=== PATIENT | male | born 1945 | race Caucasian/White ===

== ENCOUNTER 2018-03-16 17:46 | Emergency (ER) | payer MEDICARE, OTHER ==
[2018-03-16 18:36] VITALS: BP 145/73
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
== END 2018-03-16 18:36 | disposition home or self-care (01) ==
LOC: ED 17:46
DX: S29.012A Strain of muscle and tendon of back wall of thorax, initial encounter (principal); V43.52XA Car driver injured in collision with other type car in traffic accident, initial encounter; Y92.410 Unspecified street and highway as the place of occurrence of the external cause; Z87.891 Personal history of nicotine dependence; Z88.3 Allergy status to other anti-infective agents
CPT/HCPCS: 99282

== ENCOUNTER 2019-10-21 09:55 | Inpatient (IN) | payer MEDICARE, BC, OTHER ==
--- NOTE | 2019-10-08 16:29 | HP ---
HISTORY AND PHYSICAL: DATE OF ADMISSION/SURGERY: 10/21/19 DATE OF OFFICE VISIT: 10/03/19 SURGEON: Cecily Luna MD * (DICTATED BY LULU CANSECO) PROCEDURE: Right total hip arthroplasty. CHIEF COMPLAINT: Right hip pain. HISTORY OF PRESENT ILLNESS: Mr. Lucio is a 74-year-old gentleman with severe end- stage osteoarthritis of the right hip. He has failed conservative treatment and elected to proceed with a right total hip arthroplasty. PAST MEDICAL HISTORY: High cholesterol and GERD. PAST SURGICAL HISTORY: Vasectomy, bilateral rotator cuff repair, varicose vein surgery, and tonsillectomy. CURRENT MEDICATIONS: 1. Rosuvastatin calcium 5 mg a day. 2. Montelukast sodium 10 mg a day. 3. Ranitidine 150 mg a day. 4. Sildenafil 50 mg a day. 5. Vitamin D, magnesium, Aleve, and Tylenol as needed. ALLERGIES: ERYTHROMYCIN. FAMILY HISTORY: Coronary artery disease. SOCIAL HISTORY: He is a 74-year-old gentleman, lives with his . He does not smoke or use drugs. Use occasional alcohol. REVIEW OF SYSTEMS: A complete 14-point review of systems was reviewed with the patient. Is positive for GERD. He denies history of DVT, PE, hepatitis, HIV, or anesthesia problems. PHYSICAL EXAMINATION GENERAL: He is well developed, well nourished, in no acute distress. VITAL SIGNS: He stands 66 inches tall, weighs 169 pounds. Blood pressure is 118/74, heart rate is 96. HEENT: Normocephalic, atraumatic. NECK: Supple. No palpable lymph nodes. PULMONARY: The lungs are clear to auscultation bilaterally. CARDIO: Regular rate and rhythm. Strong S1, S2. ABDOMEN: Soft, nontender, nondistended. NEUROLOGICAL: He is alert and oriented x3. MUSCULOSKELETAL: Right lower extremity: The skin is intact. There are no open wounds or abrasions. He walks with an antalgic-type gait favoring his right hip. He has 90 degrees of hip flexion, 0 degrees of internal rotation, 20 degrees of external rotation, all reproducing severe groin pain. He is able to dorsiflex and plantarflex. He has 2+ dorsalis pedis pulse and intact sensation. ASSESSMENT AND PLAN: Mr. Lucio is a 74-year-old gentleman with severe end- stage osteoarthritis of the right hip. He has failed conservative treatment and elected to proceed with a right total hip arthroplasty. The surgery is scheduled for 10/21/[address] Luna discussed the risks and benefits of the surgery at today's visit and all of his questions were answered. He will follow up with Dr. Luna 2 weeks after the surgery. LULU CANSECO [id number]/[facility] #: [id number] MTDHelen
[~2019-10-21 09:55] MED LIST: Acetaminophen TAB* 325 MG PO ONE; Buffered Lidocaine 1% SYRIN* 1 ML/SYRINGE INTRADERM ONE; GENTAMICIN ADULT IVPB SCH; Gabapentin CAP(*) 300 MG PO ONE; Lactated Ringers 1000 ML Bag* 1,000 ML IV SCH; NS 0.9% IVPB SCH; Tranexamic Acid 1,000 MG in NS 0.9% 50 ML* (outpatient use) IV SCH; celeCOXIB CAP* 200 MG PO ONE
[2019-10-21] MEDS ORDERED: Gabapentin CAP(*) 300 MG ONE (11:25)
[2019-10-21] MEDS ORDERED: Acetaminophen TAB* 325 MG ONE (11:25)
[2019-10-21] MEDS ORDERED: celeCOXIB CAP* 200 MG ONE (11:26)
[2019-10-21] MEDS ORDERED: Buffered Lidocaine 1% SYRIN* 1 ML/SYRINGE INTRADERM ONE (11:26)
[2019-10-21] MEDS ORDERED: ceFAZolin 2 GM PREMIX in ORs 2 GM/50 ML BAG ONE (11:26)
[2019-10-21] MEDS ORDERED: fentaNYL* 50 MCG/ML 2 ML VIAL (100 MCG VIAL) ONE (13:27)
[2019-10-21] MEDS ORDERED: Propofol* 500 MG/50 ML BTL ONE (13:29)
[2019-10-21] MEDS ORDERED: Midazolam* 1 MG/ML 2 ML VIAL (2 MG) ONE (13:29)
[2019-10-21] MEDS ORDERED: Lidocaine 2% PF * 5 ML VIAL ONE (13:29)
[2019-10-21] MEDS ORDERED: Phenylephrine 40 MCG/ML SYRINGE ONE (14:14)
[2019-10-21] MEDS ORDERED: EPHEDrine (Pressors)* 50 MG/ML VIAL ONE ×2 (14:43→15:45)
[2019-10-21] MEDS ORDERED: Gentamicin ADULT (*) 40 MG/ML VIAL (2 ML VIAL = 80 MG) ONE (14:50)
[2019-10-21] MEDS ORDERED: Gentamicin ADULT (*) 140 MG in NS 0.9% 100 ML* 100 ML IVPB SCH (14:57)
[2019-10-21] MEDS ORDERED: Naloxone* 0.4 MG/ML 1 ML VIAL IV PRN (15:31)
[2019-10-21] MEDS ORDERED: PROCHLORPERAZINE INJ 5 MG/ML 2 ML VIAL IV PRN (15:31)
[2019-10-21] MEDS ORDERED: diPHENhydraMINE IV* 50 MG/ML 1 ml VIAL (BENADRYL) IV PRN ×2 (15:31→15:53)
[2019-10-21] MEDS ORDERED: HYDROmorphone INJ1* 1 MG/ML SYRINGE IV PRN (15:31)
[2019-10-21] MEDS ORDERED: oxyCODONE TAB* 5 MG TAB PO PRN ×2 (15:31→15:53)
[2019-10-21] MEDS ORDERED: Ondansetron INJ* 2 MG/ML VIAL IV PRN (15:31)
--- OUTSIDE RECORDS SUMMARY | 2019-10-21 15:49 | XMS REPORT | Continuity of Care Document ---
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 Onset: 01/22/2009 Pure hypercholesterolemia Boni Rockwell M.D. Onset: 01/22/2009 Impotence of organic origin Oli Cooper D.O. Onset: 09/04/2013 Gilbert's syndrome Boni Rockwell M.D. Onset: 09/03/2014 Benign prostatic hypertrophy without Boni Rockwell M.D. Onset: 2014 outflow obstruction Psychogenic impotence Boni Rockwell M.D. Onset: 09/07/2016 Social History Type Date Description Comments Sex Unknown Tobacco Use Start: Unknown End: Unknown Does Not Smoke Cigarettes Tobacco Use Reviewed: 09/03/14 Denies Cigarette Use Smoking Status Reviewed: 09/15/19 Denies Cigarette Use ETOH Use Currently consumes alcohol 1/day Recreational Drug Use Never Used Drugs Tobacco Use Start: Unknown Non Smoker Allergies, Adverse Reactions, Alerts Active Allergies Reaction Severity Comments Date Erythromycin 03/26/2004 Medications Active Medications SIG Qnty Indications Ordering Date Provider Magnesium 1 qd Unknown 09/14/2019 Ibuprofen PM 1 po at bedtime Unknown 03/04/2019 200-25mg Capsules Viagra take 1 tablet by 6tabs N52.9 Oli Cooper, 01/14/2019 50mg Tablets mouth daily as D.O. needed for erectile dysfunction Rosuvastatin Calcium take 1 tablet by 90tabs E78.0 Oli Cooper, 2018 mouth Every Night D.O. 5mg Tablets For Cholesterol Ranitidine HCL 1 tab by mouth 180caps K29.00 Kenneth Oli, 09/12/2018 150mg twice a day for D.O. Capsules heartburn Vitamin D3 1 by mouth every Unknown 09/11/2018 2000Unit day for vitamin d Capsules deficiency During The Winter Months Multivitamins 1 by mouth every Unknown 09/05/2015 day Metamucil 1 tsp w/8 oz of OTC Silcoff, 04/09/2015 Powder water twice daily, Ioana Genao follow with 8 oz of water Montelukast Sodium take one tablet by 90tabs J31.0 Oli Cooper, 2012 10mg mouth every D.O. Tablets evening for chronic rhinitis J30.9 History Medications Ibuprofen 1 cap by mouth 30tabs Oli Cooper, 07/18/2019 - 800mg Tablets three times a D.O. 07/28/2019 day Levofloxacin 1 by mouth 10tabs N45.1 Oli Cooper, 07/18/2019 - 500mg every day x 10 D.O. 07/28/2019 Tablets days Medications Administered in Office Medication SIG Qnty Indications Ordering Provider Date injection, kenalog, 10 mg Oli Cooper, D.O. 03/05/2019 Injection Immunizations CPT Code Status Date Vaccine Lot # [id number] Given 07/18/2019 Influenza Virus Vaccine, Quadrivalent, Split, [id number] Preservative Free 79894 Given 09/12/2018 Influenza Virus Vaccine, Quadrivalent, Split, [id number] Preservative Free 51791 Given 09/10/2017 Influenza Virus Vaccine, Quadrivalent, Split, [id number] Preservative Free 39136 Given 08/07/2016 Influenza Virus Vaccine, Quadrivalent, Split, [id number] Preservative Free 41351 Given 09/15/2015 Influenza Virus Vaccine, Quadrivalent, Split, [id number] Preservative Free 22091 Given 09/15/2015 Prevnar 13 [id number] 20883 Given 09/06/2015 Adacel or Boostrix, TDaP [id number] 82830 Given 10/02/2014 Influenza Virus Vaccine, Quadrivalent, Split, [id number] Preservative Free 40963 Given 09/01/2013 Flu, Split Virus 3Yrs [id number] 98423 Given 08/19/2012 Flu, Split Virus 3Yrs [id number] 78246 Given 07/15/2011 Flu, Split Virus 3Yrs 35926 Given 08/23/2010 Flu, Split Virus 3Yrs [id number] 09827 Given 08/23/2010 Pneumococcal Immunization [id number] 37468 Given 12/01/2009 Zostavax [id number] 66810 Given 08/14/2009 Flu, Split Virus 3Yrs [id number] 96044 Given 09/04/2008 Td Immunization [id number] 13153 Given 09/04/2008 Flu, Split Virus 3Yrs [id number] 03408 Given 09/19/2007 Flu, Split Virus 3Yrs [id number] 78920 Given 10/02/2006 Flu, Split Virus 3Yrs [id number] 44150 Given 10/20/2005 Flu, Split Virus 3Yrs [id number] 48127 Given 07/14/2004 Td Immunization 54604 Given 09/18/2003 Flu, Split Virus 3Yrs Vital Signs Date Vital Result Comment 09/15/2019 2:09pm BP Systolic 112 mmHg BP Diastolic 74 mmHg 07/18/2019 2:52pm BP Systolic 130 mmHg BP Diastolic 78 mmHg Weight 162.50 lb Results Description No Information Available Procedures Description No Information Available Medical Devices Description No Information Available Encounters Type Date Location Provider Dx Diagnosis Office Visit 09/15/2019 Main Office Oli Cooper, M25.551 Pain in right hip 1:30p D.O. Z01.818 Encounter for other preprocedural examination N40.0 Benign prostatic hyperplasia without lower urinry tract symp Office Visit 07/18/2019 2:45p Main Office Oli Cooper D.O. N45.1 Epididymitis Z23 Encounter for immunization Z41.8 Encntr for oth proc for purpose oth than remedy health state Assessments Date Code Description Provider 09/15/2019 M25.551 Pain in right hip Oli Cooper D.O. 09/15/2019 Z01.818 Encounter for other preprocedural examination Oli Cooper D.O. 09/15/2019 N40.0 Benign prostatic hyperplasia without lower Oli Cooper D.O. urinary tract sym 07/18/2019 N45.1 Epididymitis Oli Cooper D.O. 07/18/2019 Z23 Encounter for immunization Oli Cooper D.O. 07/18/2019 Z41.8 Encounter for other procedures for purposes Oli Cooper D.O. other than remedying health state Plan of Treatment Future Appointment(s):09/21/2020 3:30 pm - Oli Cooper D.O. at Main [facility]/15/2019 - Oli Cooper D.O.M25.551 Pain in right hipFollow up:DMHM when xabexmjclaT00.818 Encounter for other preprocedural examinationFollow up: Good exercise tolerance. no comorbidities. Alfonso is a low risk for this surgical procedure. EKG in January was normal. Recommended to have CBC and CMP prior to surgery may do with regular presurgicalprocess. Order given just in case.N40.0 Benign prostatic hyperplasia without lower urinary tract sym Functional Status Description No Information Available Mental Status Description No Information Available Referrals Description No Information Available
--- OUTSIDE RECORDS SUMMARY | 2019-10-21 15:49 | XMS REPORT | Continuity of Care Document ---
:1945 External Reference #:[id number] Author Name Cecily Luna M.D. 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 Onset: 10/03/2019 Localized, primary osteoarthritis of the pelvic Cecily Luna M.D. Onset: region and thigh Social History Type Date Description Comments Sex Unknown ETOH Use Currently consumes alcohol Tobacco Use Start: Unknown Patient has never smoked Smoking Status Reviewed: 10/03/19 Patient has never smoked Exercise Type/Frequency Exercises regularly Allergies, Adverse Reactions, Alerts Active Allergies Reaction Severity Comments Date Erythromycin 03/26/2019 Medications Active Medications SIG Qnty Indications Ordering Provider Date Rosuvastatin Calcium Oli Cooper, 5mg Tablets DO Montelukast Sodium Oli Cooper, 10mg Tablets DO Ranitidine HCL Unknown 150mg Capsules Sildenafil Citrate Oli Cooper, 50mg Tablets DO Vitamin D Unknown 50mcg (2000 Ut) Capsules Magnesium Unknown 250mg Tablets Aleve Unknown 220mg Capsules Tylenol PM Unknown Medications Administered in Office Medication SIG Qnty Indications Ordering Provider Date Depomedrol 40MG Cecily Luna M.D. 10/03/2019 Injection Immunizations Description No Information Available Vital Signs Date Vital Result Comment 10/03/2019 1:47pm Height 66 inches 5'6" Weight 169.00 lb Heart Rate 96 /min BP Systolic 118 mmHg BP Diastolic 74 mmHg Respiratory Rate 16 /min Body Temperature 97.5 F Pain Level 4 BMI (Body Mass Index) 27.3 kg/m2 08/25/2019 2:29pm Height 66 inches 5'6" Weight 168.00 lb Heart Rate 71 /min BP Systolic 112 mmHg BP Diastolic 60 mmHg Body Temperature 97.0 F Pain Level 5 BMI (Body Mass Index) 27.1 kg/m2 Results Description No Information Available Procedures Date Code Description Status 10/03/2019 17229 Inject/Drain Joint/Bursa Major W/O US Completed Medical Devices Description No Information Available Encounters Type Date Location Provider Dx Diagnosis Office Visit 08/25/2019 [facility] Cecily Luna M25.551 Pain in right hip 2:15p at [facility] M16.11 Unilateral primary osteoarthritis, right hip Assessments Date Code Description Provider 10/03/2019 M25.551 Pain in right hip Cecily Luna M.D. 10/03/2019 M16.11 Unilateral primary osteoarthritis, right hip Cecily Luna M.D. 10/03/2019 M25.561 Pain in right knee Cecily Luna M.D. 10/03/2019 M25.461 Effusion, right knee Cecily Luna M.D. 10/03/2019 M17.11 Unilateral primary osteoarthritis, right knee Cecily Luna M.D. 08/25/2019 M25.551 Pain in right hip Cecily Luna M.D. 08/25/2019 M16.11 Unilateral primary osteoarthritis, right hip Cecily Luna M.D. Plan of Treatment Future Appointment(s):10/21/2019 4:30 pm - Cecily Luna M.D. at [facility] at Otbrtf4610/03/2019 - Cecily Luna M.D.M25.551 Pain in right hipFollow up:Follow up: 2 weeks after jiovhuxO44.11 Unilateral primary osteoarthritis, right hipM25.561 Pain in right kneeM25.461 Effusion, right kneeM17.11 Unilateral primary osteoarthritis, right knee Functional Status Description No Information Available Mental Status Description No Information Available Referrals Description No Information Available
--- OUTSIDE RECORDS SUMMARY | 2019-10-21 15:49 | XMS REPORT | Continuity of Care Document ---
:1945 External Reference #:[id number] Author Name Devang Bland M.D. 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 Medicine Problems Active Problems Provider Date Localized, [...] BMI (Body Mass Index) 27.1 kg/m2 Results Test Acquired Date Facility Test Result H/L Range Note Comp Metabolic 10/03/2019 [facility] Sodium 138 mmol/L Normal 135-[address] [place] [address] [phone] Potassium 3.9 mmol/L Normal 3.5-5.0 Chloride 102 mmol/L Normal 101-111 Co2 Carbon Dioxide 29 mmol/L Normal 22-32 Anion Gap 7 mmol/L Normal 2-11 Glucose 87 mg/dL Normal 70-100 Blood Urea Nitrogen 22 mg/dL Normal 6-24 Creatinine 0.98 mg/dL Normal 0.67-1.17 BUN/Creatinine Ratio 22.4 High 8-20 Calcium 9.7 mg/dL Normal 8.6-10.3 Total Protein 7.0 g/dL Normal 6.4-8.9 Albumin 4.4 g/dL Normal 3.2-5.2 Globulin 2.6 g/dL Normal 2-4 Albumin/Globulin Ratio 1.7 Normal 1-3 Total Bilirubin 1.40 mg/dL High 0.2-1.0 Alkaline Phosphatase 97 U/L Normal 34-104 Alt 31 U/L Normal 7-52 Ast 24 U/L Normal 13-39 Egfr Non- 74.8 >60 Egfr 90.5 >60 1 Inr/Protime 10/03/2019 [facility] Inr 1.01 Normal 0.82-1.[address] [place] [address] [phone] Laboratory test 10/03/2019 [facility] Partial 37.9 Normal 26.0 -38.[address] [address] Time PTT [phone] CBC Auto Diff 10/03/2019 [facility] White Blood 9.5 10^3/uL Normal 3.5-10.[address] [place] [address] [phone] Red Blood Count 4.96 10^6/uL Normal 4.18-5.48 Hemoglobin 15.1 g/dL Normal 14.0-18.0 Hematocrit 44 % Normal 42-52 Mean Corpuscular Volume 88 fL Normal 80-94 Mean Corpuscular Hemoglobin 31 pg Normal 27-31 Mean Corpuscular HGB Conc 35 g/dL Normal 31-36 Red Cell Distribution Width 13 % Normal 10-15 Platelet Count 246 10^3/uL Normal 150-450 Mean Platelet Volume 8.6 fL Normal 7.4-10.4 Abs Neutrophils 4.3 10^3/uL Normal 1.5-7.7 Abs Lymphocytes 4.2 10^3/uL Normal 1.0-4.8 Abs Monocytes 0.8 10^3/uL Normal 0-0.8 Abs Eosinophils 0.2 10^3/uL Normal 0-0.6 Abs Basophils 0.1 10^3/uL Normal 0-0.2 Abs Nucleated RBC 0.0 10^3/uL Granulocyte % 45.5 % Lymphocyte % 44.1 % Monocyte % 8.0 % Eosinophil % 1.7 % Basophil % 0.7 % Nucleated Red Blood Cells % 0.2 Urinalysis Profile 10/03/2019 [facility] Urine Color Yellow [address] [place] [address] [phone] Urine Appearance Clear Urine Specific [place] 1.012 Normal 1.010-1.030 Urine pH 6.0 Normal 5-9 Urine Urobilinogen Negative Negative Urine Ketones Negative Negative Urine Protein Negative Negative Urine Leukocytes Negative Negative Urine Blood Negative Negative Urine Nitrite Negative Negative Urine Bilirubin Negative Negative Urine Glucose Negative Negative Type & Screen 10/03/2019 [facility] Patient Blood Type A Positive [address] [place] [address] [phone] Antibody Screen NEGATIVE Urine Culture And 10/03/2019 [facility] Urine Culture SEE RESULT [address] [place] [address] [phone] 1 Because ethnic data is not always readily available, this report includes an eGFR for both -Americans and non- Americans. The National Kidney Disease Education Program (NKDEP) does not endorse the use of the MDRD equation for patients that are not between the ages of 18 and 70, are , have extremes of body size, muscle mass, or nutritional status, or are non- or non-. According to the National Kidney Foundation, irrespective of diagnosis, the stage of the disease is based on the level of kidney function: Stage Description GFR(mL/min/1.73 m(2)) 1 Kidney damage with normal or decreased GFR 90 2 Kidney damage with mild decrease in GFR 60-89 3 Moderate decrease in GFR 30-59 4 Severe decrease in GFR 15-29 5 Kidney failure <15 (or dialysis) 2 Standard intensity warfarin therapeutic range: 2.0-3.0 High intensity warfarin therapeutic range: 2.5-3.5 3 SEE RESULT BELOW Name: OSWALDO LUCIO : [address]: Cecily Luna MD Acct: [id number] Unit: [id number] AGE: 74 Location: [facility] Re10/03/19 SEX: M Status: REG REF SPEC: [id number] ZORAN: 10/03/[address]: Cecily Luna MD REQ: [id number] RECD: 10/03/19 STATUS: COMP _ SOURCE: URINE SPDESC: ORDERED: Urine Culture QUERIES: Urine Source: Clean Catch Procedure Result Reported Site Urine Culture Final 10/04/19- 1436 ML No Growth (<1,000 CFU/mL) * ML - Main Lab . END OF REPORT DEPARTMENT OF PATHOLOGY, [address] [place] [address] Brian Ibarra M.D. Director [facility] # [id number] Procedures Date Code Description Status 10/03/2019 31092 Inject/Drain Joint/Bursa Major W/O US Completed Medical Devices Description No Information Available Encounters Type Date Location Provider Dx Diagnosis Office Visit 08/25/2019 [facility] Cecily Luna, M25.551 [facility] Unilateral primary osteoarthritis, right hip Assessments [...] of Treatment Future Appointment(s):10/21/2019 4:30 pm - Jose Bui PA-C at [facility] at Aifyek8010/21/2019 4:30 pm - LULU Sauceda at [facility] at Zoikil9711/03/2019 10:45 am - Cecily Luna M.D. at [facility] at Teiobw6710/21/2019 4:30 pm - Cecily Luna M.D. at [facility] at Wryxnz8810/03/2019 - Cecily Luna M.D.M25.551 Pain in right hipFollow up:Follow up: 2 weeks after uxzrrhyW03.11 Unilateral primary osteoarthritis, right hipM25.561 Pain in right kneeM25.461 Effusion, right kneeM17.11 Unilateral primary osteoarthritis, right knee Functional Status Description No Information Available Mental Status Description No Information Available Referrals Description No Information Available
--- OUTSIDE RECORDS SUMMARY | 2019-10-21 15:49 | XMS REPORT | Continuity of Care Document ---
:1945 External Reference #:[id number] Author Name Oli Cooper D.O. Address [address] [place] [id number] Care Team Providers Name Role Phone David Arias MD - Ophthalmology Care Team Information Communications Attendant [phone] Jeffrey Sweet MD - Vascular Care Team Information Communications Attendant [phone] Surgery Problems Active Problems Provider Date Allergic [...] HCL 1 tab by mouth 180caps K29.00 Oli Cooper, 09/12/2018 150mg twice a day for D.O. [...] Sodium take one tablet by 90tabs J31.0 KennethOli, 2012 10mg mouth every D.O. Tablets evening for chronic rhinitis J30.9 History Medications Ibuprofen 1 cap by mouth 30tabs KennethOli, 07/18/2019 - 800mg Tablets three times a D.O. 07/28/2019 day Levofloxacin 1 by mouth 10tabs N45.1 KennethOli, 07/18/2019 - 500mg every day x 10 D.O. 07/28/2019 Tablets days Medications Administered in Office Medication SIG Qnty Indications Ordering Provider Date injection, kenalog, 10 mg LiGerhard rosaleson, D.O. 03/05/2019 Injection Immunizations CPT Code Status Date Vaccine Lot # [id number] Given 07/18/2019 Influenza Virus Vaccine, Quadrivalent, Split, [id number] Preservative Free 10553 Given 09/12/2018 Influenza Virus Vaccine, Quadrivalent, Split, [id number] Preservative Free 93994 Given 09/10/2017 Influenza Virus Vaccine, Quadrivalent, Split, [id number] Preservative Free 42913 Given 08/07/2016 Influenza Virus Vaccine, Quadrivalent, Split, [id number] Preservative Free 77329 Given 09/15/2015 Influenza Virus Vaccine, Quadrivalent, Split, [id number] Preservative Free 97632 Given 09/15/2015 Prevnar 13 [id number] 31039 Given 09/06/2015 Adacel or Boostrix, TDaP [id number] 63942 Given 10/02/2014 Influenza Virus Vaccine, Quadrivalent, Split, [id number] Preservative Free 85108 Given 09/01/2013 Flu, Split Virus 3Yrs [id number] 37941 Given 08/19/2012 Flu, Split Virus 3Yrs [id number] 75543 Given 07/15/2011 Flu, Split Virus 3Yrs 62135 Given 08/23/2010 Flu, Split Virus 3Yrs [id number] 01767 Given 08/23/2010 Pneumococcal Immunization [id number] 79016 Given 12/01/2009 Zostavax [id number] 07172 Given 08/14/2009 Flu, Split Virus 3Yrs [id number] 66802 Given 09/04/2008 Td Immunization [id number] 66310 Given 09/04/2008 Flu, Split Virus 3Yrs [id number] 71916 Given 09/19/2007 Flu, Split Virus 3Yrs [id number] 22727 Given 10/02/2006 Flu, Split Virus 3Yrs [id number] 92645 Given 10/20/2005 Flu, Split Virus 3Yrs [id number] 30913 Given 07/14/2004 Td Immunization 21466 Given 09/18/2003 Flu, Split Virus 3Yrs Vital Signs Date Vital Result Comment 09/15/2019 2:09pm BP Systolic 112 mmHg BP Diastolic 74 mmHg 07/18/2019 2:52pm BP Systolic 130 mmHg BP Diastolic 78 mmHg Weight 162.50 lb Results Test Acquired Date Facility Test Result H/L Range Note Lipid Profile 04/11/2019 [facility] Triglycerides 67 mg/dL 1 (Trig/Chol/HDL) [phone] Cholesterol 138 mg/dL 2 HDL Cholesterol 40.9 mg/dL 3 LDL Cholesterol 84 mg/dL 4 Comp Metabolic Panel 04/11/2019 [facility] Sodium 139 mmol/L Normal 135-145 [phone] Potassium 4.3 mmol/L Normal 3.5-5.0 Chloride 106 mmol/L Normal 101-111 Co2 Carbon Dioxide 27 mmol/L Normal 22-32 Anion Gap 6 mmol/L Normal 2-11 Glucose 93 mg/dL Normal 70-100 Blood Urea Nitrogen 19 mg/dL Normal 6-24 Creatinine 0.97 mg/dL Normal 0.67-1.17 BUN/Creatinine Ratio 19.6 Normal 8-20 Calcium 9.4 mg/dL Normal 8.6-10.3 Total Protein 6.7 g/dL Normal 6.4-8.9 Albumin 4.3 g/dL Normal 3.2-5.2 Globulin 2.4 g/dL Normal 2-4 Albumin/Globulin Ratio 1.8 Normal 1-3 Total Bilirubin 1.40 mg/dL High 0.2-1.0 Alkaline Phosphatase 96 U/L Normal 34-104 Alt 22 U/L Normal 7-52 Ast 20 U/L Normal 13-39 Egfr Non- 75.7 >60 Egfr 91.5 >60 5 CBC Auto Diff 04/11/2019 [facility] White Blood 7.8 10^3/uL Normal 3.5-10.8 [phone] Count Red Blood Count 4.96 10^6/uL Normal 4.18-5.48 Hemoglobin 14.9 g/dL Normal 14.0-18.0 Hematocrit 44 % Normal 42-52 Mean Corpuscular Volume 89 fL Normal 80-94 Mean Corpuscular Hemoglobin 30 pg Normal 27-31 Mean Corpuscular HGB Conc 34 g/dL Normal 31-36 Red Cell Distribution Width 13 % Normal 10.5-15 Platelet Count 220 10^3/uL Normal 150-450 Mean Platelet Volume 8.6 fL Normal 7.4-10.4 Abs Neutrophils 3.4 10^3/uL Normal 1.5-7.7 Abs Lymphocytes 3.6 10^3/uL Normal 1.0-4.8 Abs Monocytes 0.6 10^3/uL Normal 0-0.8 Abs Eosinophils 0.1 10^3/uL Normal 0-0.6 Abs Basophils 0.0 10^3/uL Normal 0-0.2 Abs Nucleated RBC 0.0 10^3/uL Granulocyte % 43.5 % Lymphocyte % 46.4 % Monocyte % 7.8 % Eosinophil % 1.9 % Basophil % 0.4 % Nucleated Red Blood Cells % 0.4 1 Desirable: <150 Borderline High: 150-199 High: 200-499 Very High: >500 2 Desirable: <200 Borderline High: 200-239 High: >239 3 Low: <40 Desirable: 40-60 High: >60 4 Desirable: <100 Near Optimal: 100-129 Borderline High: 130-159 High: 160-189 Very High: >189 5 Because ethnic data is not always readily [...] 15-29 5 Kidney failure <15 (or dialysis) Procedures Description No Information Available Medical Devices Description No Information Available Encounters Type Date Location Provider Dx Diagnosis Office Visit 09/15/2019 Main Office Oli Cooper, M25.551 Pain in right hip 1:30p D.OKrishna Z01.818 Encounter for other preprocedural examination N40.0 [...] pm - Oli Cooper D.O. at Main Ijdjro3209/15/2019 - Oli Cooper D.O.M25.551 Pain in right hipFollow up:[facility] when ckwdsikhraK03.818 Encounter for other preprocedural examinationFollow up: Good [...]
--- OUTSIDE RECORDS SUMMARY | 2019-10-21 15:49 | XMS REPORT | Continuity of Care Document ---
:1945 External Reference #:[id number] Author Name Cecily Luna M.D. (transmitted by agent of provider Yvette Rodriguez) Address [address] [place] [id number] Care Team Providers Name Role Phone Oli Cooper DO - Family Care Team Information Property Field Inspector [phone] Medicine Problems Active Problems Provider Date Localized, primary osteoarthritis of the pelvic Cecily Luna M.D. Onset: region and thigh Social History Type Date Description Comments Sex Unknown ETOH Use Currently consumes alcohol Tobacco Use Start: Unknown Patient has never smoked Smoking Status Reviewed: 08/25/19 Patient has never smoked Exercise Type/Frequency Exercises regularly Allergies, Adverse Reactions, Alerts Active Allergies Reaction Severity Comments Date Erythromycin 03/26/2019 Medications Active Medications SIG Qnty Indications Ordering Provider Date Rosuvastatin Calcium Oli Cooper, 5mg Tablets DO Montelukast Sodium Oli Cooper, 10mg Tablets DO Ranitidine HCL Unknown 150mg Capsules Sildenafil Citrate Oli Cooper, 50mg Tablets DO Vitamin D Unknown Magnesium Unknown Aleve Unknown Tylenol PM Unknown Immunizations Description No Information Available Vital Signs Date Vital Result Comment 08/25/2019 2:29pm Height 66 inches 5'6" Weight 168.00 lb Heart Rate 71 /min BP Systolic 112 mmHg BP Diastolic 60 mmHg Body Temperature 97.0 F Pain Level 5 BMI (Body Mass Index) 27.1 kg/m2 03/26/2019 10:25am Height 66 inches 5'6" Weight 169.00 lb BP Systolic 134 mmHg BP Diastolic 76 mmHg Body Temperature 98.0 F Pain Level 8 BMI (Body Mass Index) 27.3 kg/m2 Results Description No Information Available Procedures Description No Information Available Medical Devices Description No Information Available Encounters Type Date Location Provider Dx Diagnosis Office Visit 03/26/2019 [facility] Cecily Luna, M25.551 Pain in [place] 10[place] M16.11 Unilateral primary osteoarthritis, right hip Assessments Date Code Description Provider 08/25/2019 M25.551 Pain in right hip Cecily Luna M.D. 08/25/2019 M16.11 Unilateral primary osteoarthritis, right hip Cecily Luna M.D. 03/26/2019 M25.551 Pain in right hip Cecily Luna M.D. 03/26/2019 M16.11 Unilateral primary osteoarthritis, right hip Cecily Luna M.D. Plan of Treatment 08/25/2019 - Cecily Luna M.D.M25.551 Pain in right hipFollow up:Follow up: for H&PM16.11 Unilateral primary osteoarthritis, right hip Functional Status Description No Information Available Mental Status Description No Information Available Referrals Description No Information Available
[2019-10-21] MEDS ORDERED: Polyethylene Glycol 3350* 17 GM PACKET PO PRN (15:53)
[2019-10-21] MEDS ORDERED: Ondansetron ODT TAB* 4 MG PO PRN (15:53)
[2019-10-21] MEDS ORDERED: diPHENhydraMINE PO* 25 MG PO PRN (15:53)
[2019-10-21] MEDS ORDERED: oxyCODONE/Acetamin 5/325 MG* TAB PO PRN (15:53)
[2019-10-21] MEDS ORDERED: Morphine INJ* 2 MG/ML 1 ML SYRINGE (TWO MG - NEW SYRINGE VERSION) IV PRN (15:53)
[2019-10-21] MEDS ORDERED: Ondansetron TAB* 4 MG PO PRN (15:53)
[2019-10-21] MEDS ORDERED: Magnesium Hydroxide LIQ* 30 ML UDC PO PRN (15:53)
[2019-10-21] MEDS ORDERED: Propofol* 10 MG/ML 20 ML BTL ONE (16:03)
--- NOTE | 2019-10-21 16:50 | OP ---
Operative Report - Blank - Operative Report Date of Operation: 10/21/19 Note: OSWALDO RUBIO 1945 Date Of Surgery: 10/21/19 Cecily Luna MD Consultant Technology: Mark LAWSON did help throughout the procedure with preparation of the hip, wound retraction, manipulation of the hip, and wound closure. Anesthesiologist: Dr. Lee Anesthesia Type: Spinal Preoperative Diagnosis: Right severe degenerative osteoarthritis of the hip Postoperative Diagnosis: As above Procedure Performed: Right Total Hip Arthroplasty Complications: None Specimen: Femoral head and acetabular reamings sent to pathology. Hardware used: This is uncemented Jenifer total hip arthroplasty hardware for the femur a size 5 accolade II with 127 degree neck femoral component, for the acetabulum a size 54E trident II tritanium cluster hole shell, two screws length 15mm and 20 mm, for the liner a 42 E MDM cementless liner, for the insert a size 28/48/42E MDM X3 polyethylene insert, and for the femoral head a size 28 - 4 ceramic biolox V40 femoral head. Brief history/Indication: OSWALDO RUBIO was known in clinic and had a history of severe right hip pain. He failed conservative treatment with anti- inflammatories, pain pills, intra-articular injections and physical therapy. He elected to undergo right total hip arthroplasty due to continued pain and decreased quality of life. Radiographs showed severe end stage osteoarthritis of the hip with bone on bone contact. Informed consent was obtained from the patient. He understood the risks of surgery included but were not limited to: bleeding, infection, damage to nearby structures, intraoperative fracture, nerve palsy, failure of the hardware, early loosening, stiffness or loss of motion, dislocation, leg length discrepancy, anesthesia complications, stroke, heart attack, blood clot and . He wished to proceed. Intra-Operative findings: Intraoperatively the patient was noted to have severe loss of cartilage of the acetabulum and femoral head. Description of the Procedure: OSWALDO RUBIO was identified in the preanesthesia unit. His right hip was marked as the correct operative side. Informed consent was signed and placed in the chart. The patient was taken to the operating room and placed under anesthesia without complication. A dejesus catheter was placed. The patient was placed on the peg board with all bony prominences well padded. The right lower extremity was prepped and draped in the usual sterile fashion. Preoperative time -out was made to correctly identify the patient, side and site. Appropriate intraoperative antibiotics were given within one hour of incision. A standard posterior incision was made and carried sharply down to the lateral fascia. A new 10 blade was used to make an incision in the fascia in line with the skin incision. A charnley retractor was placed. The piriformis and conjoined tendons were identified and elevated off the posterolateral femur using electrocautery. These were tagged with number 5 Ethibond. Next electrocautery was used to make a posterolateral capsular flap and this was tagged with number 5 Ethibonds. The hip was carefully dislocated. Lesser trochanter to the center of the femoral head was measured at 55 mm. The oscillating saw was used to make the femoral neck cut. The femoral head was carefully removed. The femur was retracted anteriorly and the acetabular retractors were placed. Long-handled knife was used to sharply remove any remaining labrum from the acetabular rim. The acetabulum was sequentially reamed up to a size 54. A bleeding subchondral bone bed was obtained. A trial liner was placed and had excellent fit and stability. A 54E cup with two screws was placed and had excellent stability with appropriate anteversion and abduction angle. A size 42E cementless MDM liner was impacted into the acetabular shell. The liner was checked for stability and was stable. Next attention was turned to preparation of the femoral canal. A canal finder was used to enter the proximal femur. The femoral canal was sequentially broached up to a size 5 femoral broach trial. A trial neck and 28 - 4 trial femoral head was chosen. Lesser trochanter to center of the femoral head measurement was satisfactory. The hip was reduced and taken through a range of motion. The hip was stable in all positions with good soft tissue tension and appropriate leg lengths. The hip was dislocated and all trials were removed. The final implant chosen was a accolade II size 5. This stem was impacted into the femoral canal without difficulty. The stem was stable with appropriate anteversion. The femoral head chosen was a 28 - 4 ceramic head with 28/48/42E MDM X3 insert. The head was impacted onto the femoral neck without difficulty. The final lesser trochanter to center of the femoral head measurement was satisfactory. The hip was reduced and taken through a range of motion. The hip was stable in all positions with good soft tissue tension and appropriate leg lengths. The hip was copiously irrigated with sterile saline. The previously tagged capsule and tendons were repaired to the posterolateral femur through two trochanteric drill holes. The lateral fascia layer was closed using number 1 vicryls. The rest of the incision was closed in a layered fashion using 0 and 2-0 vicryls. The skin was closed using 3-0 monocryl suture and Dermabond. Sterile adaptic, 4x4s and paper tape was used to cover the incision. The patients anesthesia was reversed without difficulty. He was taken to the PACU in stable condition. Intended weight-bearing will be as tolerated with posterior hip precautions.
[2019-10-21] MEDS ORDERED: oxyCODONE TAB* 5 MG TAB ONE (17:57)
[2019-10-21] MEDS: Cyclobenzaprine TAB* 10 MG PO PRN (19:11)
[2019-10-21] MEDS: Lactated Ringers 1000 ML Bag* 1,000 ML IV SCH (19:13)
[2019-10-21] MEDS: Ondansetron INJ* 2 MG/ML VIAL IV PRN (19:24)
[2019-10-21] MEDS: Acetaminophen TAB* 325 MG PO SCH (20:31)
[2019-10-21] MEDS: Docusate CAP* 100 MG PO SCH (20:31)
[2019-10-21] MEDS: Magnesium Hydroxide LIQ* 30 ML UDC PO SCH (20:31)
[2019-10-21] MEDS: traMADol TAB* 50 MG PO PRN (20:32)
[2019-10-21] MEDS: ceFAZolin 1 GM ADVAN(*) 1 GM in NS 0.9% 50 ML* 50 ML IVPB SCH (22:22)
--- NOTE | 2019-10-21 23:40 | OP ---
DATE OF OPERATION: 10/21/19 - ROOM #342 DATE OF : 45 SURGEON: Rafi Arreola MD ANESTHESIOLOGIST: Dr. Robertson. ANESTHESIA: General. PRE-OP DIAGNOSES: Urinary retention and difficulty placing Matute catheter intraoperatively. POST-OP DIAGNOSES: Urinary retention and difficulty placing Matute catheter intraoperatively. OPERATIVE PROCEDURE: Flexible cystoscopy and placement of [place]-tip Matute catheter (over a guidewire). INDICATIONS: Alfonso Lucio is a 74-year-old gentleman who is in the operating room for an orthopedic total joint procedure. I was called by the operating room staff and Dr. Luna because of inability to place a Matute catheter. COMPLICATIONS: None. OPERATIVE FINDINGS: [id number] prostatic enlargement with small area of trauma noted in the right lobe of the prostatic urethra (from prior catheterization attempt) and a normal-appearing bladder. POSTOPERATIVE CONDITION: Stable. DESCRIPTION OF PROCEDURE: Under sterile conditions, a flexible cystoscopy was performed. The urethra appeared normal. The prostate was [id number] enlarged. In the right lobe of the prostatic urethra, there was evidence of some mild trauma where the catheter had been attempted to be placed previously. The cystoscope was advanced into the bladder. The bladder was completely examined. The right and left ureteral orifices were normal in position and configuration. There was no evidence of bladder lesions noted. A guidewire was introduced through the flexible cystoscope into the bladder. The cystoscope was then removed and a 20-Malaysian [place]-tip Matute catheter was introduced without difficulty over the wire. The wire was then removed. The patient tolerated the procedure satisfactorily and at the conclusion of my procedure, the patient was then positioned for the orthopedic procedure to be done by Dr. Luna. I recommended that the catheter be left in for the next 24 hours to allow the area to heal and will be available for followup if there are any voiding issues after that. [id number]/[facility] #: [id number] [facility]
[2019-10-22] MEDS ORDERED: NS 0.9% 500 ML* 500 ML IV ONE (02:00)
[2019-10-22] MEDS: Lactated Ringers 1000 ML Bag* 1,000 ML IV SCH (05:03)
[2019-10-22] MEDS: traMADol TAB* 50 MG PO PRN ×3 (05:04→17:57)
[2019-10-22] MEDS: Acetaminophen TAB* 325 MG PO SCH ×3 (05:04→21:29)
[2019-10-22] MEDS: Cyclobenzaprine TAB* 10 MG PO PRN ×2 (05:04→11:39)
[2019-10-22] MEDS: ceFAZolin 1 GM ADVAN(*) 1 GM in NS 0.9% 50 ML* 50 ML IVPB SCH ×2 (06:07→13:55)
[2019-10-22 06:30] LABS: Hematocrit 36 % (42-52); Hemoglobin 12.6 g/dL (14.0-18.0); Mean Platelet Volume 7.6 fL (7.4-10.4); Platelet Count 156 10^3/uL (150-450)
[2019-10-22 06:53] LABS: BUN/Creatinine Ratio 20.7 (8-20); Calcium 8.2 mg/dL (8.6-10.3); EGFR African American 103.8 (>60); EGFR Non-African American 85.8 (>60)
[2019-10-22] MEDS: oxyCODONE/Acetamin 5/325 MG* TAB PO PRN ×3 (08:05→16:51)
[2019-10-22] MEDS: Docusate CAP* 100 MG PO SCH ×2 (08:05→21:28)
[2019-10-22] MEDS: Apixaban* 2.5 MG TAB PO SCH ×2 (08:05→21:29)
[2019-10-22] MEDS: Vitamin THERAPEUTIC TAB PO SCH (08:05)
[2019-10-22] MEDS: Magnesium Hydroxide LIQ* 30 ML UDC PO SCH ×2 (08:19→21:23)
[2019-10-22] MEDS: Ondansetron INJ* 2 MG/ML VIAL IV PRN (09:34)
--- NOTE | 2019-10-22 10:30 | PN ---
Progress Note - Progress Note Date of Service: 10/22/19 SOAP: Subjective: []Pt seen and examined at bedside. Preop he desired tylenol and tramadol alone for pain but is now having significant pain and desires to add percocet. Denies CP, SOB, dizziness or nausea. Objective: []Gen: NAD, appears well RLE: Right hip dressing CDI, thigh soft, DF/PF intact, DP2+, sensation intact to light touch distally Calves supple and nontender without erythema, edema or palpable cords Assessment: []pod 1 sp rth Plan: []WBAT PT/OT posterior hip precautions increase PO fluids Percocet added Matute until tomorrow per urology Vital Signs Temp 97.5 F 10/22/19 07:12 Pulse 76 10/22/19 07:12 Resp 17 10/22/19 08:29 BP 99/55 10/22/19 07:12 Pulse Ox 97 10/22/19 08:00 Intake & Output 10/21/19 10/22/19 10/22/19 18:59 06:59 18:59 Intake Total 1900 2604 200 Output Total 350 1450 Balance 1550 1154 200 Weight 161 lb Intake: IV Fluids 1900 1394 LR 894 NS (0.9%) 500 lr 1900 Oral 1210 200 Output: Matute 350 1450 Other: Estimated Blood Loss 200 Comment Laboratory Last Values Hgb 12.6 g/dL (14.0-18.0) L 10/22/19 06:17 Hct 36 % (42-52) L 10/22/19 06:17 Plt Count 156 10^3/uL (150-450) 10/22/19 06:17 MPV 7.6 fL (7.4-10.4) 10/22/19 06:17 Sodium 136 mmol/L (135-145) 10/22/19 06:17 Potassium 4.0 mmol/L (3.5-5.0) 10/22/19 06:17 Chloride 104 mmol/L (101-111) 10/22/19 06:17 Carbon Dioxide 29 mmol/L (22-32) 10/22/19 06:17 Anion Gap 3 mmol/L (2-11) 10/22/19 06:17 BUN 18 mg/dL (6-24) 10/22/19 06:17 Creatinine 0.87 mg/dL (0.67-1.17) 10/22/19 06:17 Est GFR ( Amer) 103.8 (>60) 10/22/19 06:17 Est GFR (Non-Af Amer) 85.8 (>60) 10/22/19 06:17 BUN/Creatinine Ratio 20.7 (8-20) H 10/22/19 06:17 Glucose 133 mg/dL (70-100) H 10/22/19 06:17 Calcium 8.2 mg/dL (8.6-10.3) L 10/22/19 06:17
[2019-10-23] MEDS: Acetaminophen TAB* 325 MG PO SCH (06:47)
[2019-10-23] MEDS: traMADol TAB* 50 MG PO PRN (06:48)
[2019-10-23 06:54] LABS: Hematocrit 35 % (42-52); Hemoglobin 11.9 g/dL (14.0-18.0); Mean Platelet Volume 8.2 fL (7.4-10.4); Platelet Count 168 10^3/uL (150-450)
[2019-10-23] MEDS: Vitamin THERAPEUTIC TAB PO SCH (07:55)
[2019-10-23] MEDS: Apixaban* 2.5 MG TAB PO SCH (07:55)
[2019-10-23] MEDS: Docusate CAP* 100 MG PO SCH (07:55)
[2019-10-23] MEDS: Magnesium Hydroxide LIQ* 30 ML UDC PO SCH (07:56)
--- NOTE | 2019-10-23 10:58 | DS ---
Orthopedic Discharge Summary - Discharge Summary Date of Admission:10/21/19 Date of Discharge: 10/23/19 Date of Surgery: 10/21/19 Attending Orthopedic Provider: Dr Luna Pre-operative Diagnosis: Right hip osteoarthritis Operative Procedure: right total hip replacement Disposition of Patient: home with outpatient PT Condition of Patient: stable History: OSWALDO RUBIO is a 74 year old M with years of increasingly severe right hip pain. Patient has failed conservative management and has elected to undergo a right total hip replacement Hospital Course: OSWALDO was admitted to [facility] on 10/21/19. Patient underwent a right total hip replacement without complication followed by a brief recovery in PACU and transfer to the Short Stay Surgical Unit in stable condition. He did require dejesus placmeent by urology and had a catheter until POD 2. He was able to void without dysuria and without difficulty after removal. Our hospitalist service, urology, physical therapy and occupational therapy also participated in this patients care. Post-op day 1: patient was alert and in no acute distress. Dressing was clean, dry and intact. Operative extremity dorsiflexion and plantarflexion intact, sensation intact to light touch distally, DP2+. Post-op day two: [place] well no hip pain. Denies CP, SOB, dizziness or nausea. dressing was changed, incision was clean, dry and intact, NVI distally. Patient was deemed to be medically and orthopedically stable for discharge. Physical therapy goals were met. Home Medications Medication Instructions Recorded Confirmed Type Montelukast Sodium TAB* [Singulair 10 mg PO QPM 03/16/18 10/21/19 History 10 MG TAB*] Ranitidine TAB (NF) [Zantac TAB 150 mg PO QPM 03/16/18 10/21/19 History (NF)] Rosuvastatin (NF) [Crestor (NF)] 5 mg PO QPM 03/16/18 10/21/19 History Acetaminophen/Diphenhydramine 1 each PO BEDTIME 10/03/19 10/21/19 History [Tylenol Pm Ex-Strength Caplet] Magnesium Oxide [Magnesium] 250 mg PO QAM 10/03/19 10/21/19 History Psyllium Husk (with Sugar) 1 teasp PO QAM 10/03/19 10/21/19 History [Metamucil Packet] Sildenafil Citrate 50 mg PO DAILY PRN 10/03/19 10/21/19 History Vitamin D TAB* 1 tab PO QAM 10/03/19 10/21/19 History Acetaminophen TAB* [Tylenol TAB*] 975 mg PO Q8HR tab 10/23/19 Rx Apixaban* [Eliquis*] 2.5 mg PO BID #60 tab 10/23/19 Rx Docusate CAP* [Colace Cap*] 100 mg PO BID PRN #90 cap 10/23/19 Rx oxyCODONE/Acetamin 5/325 MG* 2 tab PO Q4H PRN #70 tab MDD 10 10/23/19 Rx [Percocet 5/325 TAB*] Discharge Instructions following Orthopedic Surgery: Activity: * Weight Bearing as tolerated * Continue physical therapy and occupational therapy exercises as shown * outpatient PT Hip replacements: Continue Hip Precautions- do not cross legs or bend greater than 90 degrees/squat Wound care: * OK to shower on post-op day 3, no bathing, swimming, or submerging wound. * Use gentle soap, pat dry. Cover with gauze, VINOD wrap or tape. Call Orthopedic office for: * Increased drainage * Redness * Increased pain * Fever Go to ER with shortness of breath or chest pain. Diet: * Regular diet * Increase fluids and fiber to prevent constipation. * Continue to use stool softeners, call office if no bowel motion within 48 hours. Medications See Home Medication List in your packet for medications that you should take after discharge. DVT Prophylaxis: Increases bleeding tendency Eliquis Dosin.5 mg, 1 tab every 12 hours x 30 days Pain Control: Percocet Dosin/325 mg 1-2 tabs by mouth every 4-6 hours as needed for pain. Maximum of 10 tabs per day. Hold for sedation and wean off as soon as pain allows Please note that Percocet contains Tylenol (acetaminophen). Maximum daily dose of Tylenol is 4000 mg from all sources. Antibiotics are required prior to any dental work. FOLLOW UP: Follow up with [Jeremy] Within 10-14 days, call for appointment Please call our office with any questions or concerns ([phone]) [facility]
[2019-10-23 11:43] VITALS: BP 133/63
== END 2019-10-23 13:40 | disposition home or self-care (01) | DRG 470 ==
LOC: AA 10:51 → SSU 15:53
PROVIDERS: ADMIT Orthopaedic Surgery Adult Reconstructive Orthopaedic Surgery; ATTEND Orthopaedic Surgery Adult Reconstructive Orthopaedic Surgery
PROC: 0SR904A Replacement of Right Hip Joint with Ceramic on Polyethylene Synthetic Substitute, Uncemented, Open Approach (ICD-10-PCS; principal; 2019-10-21 13:45)
PROC: 0T9B80Z Drainage of Bladder with Drainage Device, Via Natural or Artificial Opening Endoscopic (ICD-10-PCS; 2019-10-21 13:45)
DX: M16.11 Unilateral primary osteoarthritis, right hip (principal); S37.30XA Unspecified injury of urethra, initial encounter; T83.098A Other mechanical complication of other urinary catheter, initial encounter; Y84.6 Urinary catheterization as the cause of abnormal reaction of the patient, or of later complication, without mention of misadventure at the time of the procedure; Y92.234 Operating room of hospital as the place of occurrence of the external cause; E78.00 Pure hypercholesterolemia, unspecified; K21.9 Gastro-esophageal reflux disease without esophagitis; N40.1 Benign prostatic hyperplasia with lower urinary tract symptoms; J30.9 Allergic rhinitis, unspecified; R33.8 Other retention of urine; Z88.1 Allergy status to other antibiotic agents; Z79.899 Other long term (current) drug therapy
CPT/HCPCS: 36415; 72170; 80048; 85014; 85018; 85049; 88304; 88311; A9270-GY; C1713; C1776; G8978-GP-CJ; G8979-GP-CI; G8987-GO-CJ; G8988-GO-CJ; G8989-GO-CJ; J0690; J1580; J2250; J2405; J2704; J3010